=== PATIENT | female | born 1980 | race Asian ===

== ENCOUNTER 2019-03-09 18:11 | Emergency (ER) | payer BC ==
[~2019-03-09] VITALS: Ht 165.1 cm; Wt 65.0 kg
[2019-03-09 19:46] VITALS: BP 137/87
== END 2019-03-09 20:08 | disposition home or self-care (01) ==
LOC: ER 18:11
DX: R07.89 Other chest pain (principal); S90.31XA Contusion of right foot, initial encounter; V49.49XA Driver injured in collision with other motor vehicles in traffic accident, initial encounter; Y93.89 Activity, other specified; Y92.488 Other paved roadways as the place of occurrence of the external cause
CPT/HCPCS: 71045; 73630; 93005; 99283; Z7610